=== PATIENT | male | born 1955 | race Caucasian/White ===

== ENCOUNTER → 2024-10-20 15:16 | Outpatient (REF) | payer MEDICARE, BC, SELFPAY | LOC: RAD 15:16 | PROVIDERS: ATTENDING PHYSICIAN Specialist; FAMILY PHYSICIAN Internal Medicine | DX: R31.0 Gross hematuria (principal) | CPT/HCPCS: 74178; Q9967 ==

== ENCOUNTER → 2024-11-29 12:06 | Outpatient (REF) | payer MEDICARE, BC, SELFPAY | LOC: HWRAD 12:06 | PROVIDERS: ATTENDING PHYSICIAN Specialist; FAMILY PHYSICIAN Internal Medicine | DX: N20.1 Calculus of ureter (principal) | CPT/HCPCS: 74018 ==